=== PATIENT | female | born 1990 | race Caucasian/White ===

== ENCOUNTER 2017-12-16 23:00 | Emergency (ER) | payer OTHER, BC ==
[~2017-12-16 23:00] MED LIST: CIPR500T4 PO
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
== END 2017-12-17 01:13 | disposition home or self-care (01) ==
LOC: HOBED 23:00
DX: O30.042 Twin pregnancy, dichorionic/diamniotic, second trimester (principal); Z3A.21 21 weeks gestation of pregnancy; V49.60XA Unspecified car occupant injured in collision with unspecified motor vehicles in traffic accident, initial encounter
CPT/HCPCS: 76815